=== PATIENT | male | born 1950 | race American Indian/Alaskan Native ===

== ENCOUNTER 2019-12-10 10:29 | Emergency (ER) | payer MEDICARE, OTHER ==
[2019-12-10] MEDS ORDERED: Metoprolol Tartrate 25 MG Tab PO ONE (10:31)
[2019-12-10] MEDS ORDERED: Morphine 4 MG/ML Syringe IVPUSH PRN (10:31)
[2019-12-10] MEDS ORDERED: Aspirin 81 MG Tab.EC PO ONE (10:31)
[2019-12-10] MEDS ORDERED: Nitroglycerin 0.4 MG Tab.SL SL PRN (10:31)
[2019-12-10] MEDS ORDERED: Tenecteplase 50 MG Kit ONE (10:39)
[2019-12-10] MEDS ORDERED: Aspirin 81 MG Tab.Chew ONE (10:39)
--- NOTE | 2019-12-10 10:41 | EDM.PDOC ---
ED HPI GENERAL MEDICAL PROBLEM - General Chief Complaint: Chest Pain Stated Complaint: CHEST PAIN Time Seen by Provider: 12/10/19 10:29 - History of Present Illness INITIAL COMMENTS - FREE TEXT/NARRATIVE: History of present illness: 69-year-old male presenting with left-sided chest pain that has been intermittent over the last couple hours. No radiation to the back, abdomen, neck head or jaw. Pressure-like located in the left lower chest and severe, 7- 8/10. Hypertensive on arrival here. No respiratory distress, difficulty breathing, cough, fevers, chills, nausea, vomiting, abdominal pain, or any other symptoms reported. He does report that he has had this pain sometimes in the past but has never sought medical care for it. Family members with cardiac disease. He is a smoker and does not see doctors, but reports in the past he was told he had prediabetes, and was also told that he needed to have a cardiac stent but when they told him how much it cost he did not pursue recommended treatment due to financial constraints. Review of systems: As per history of present illness and below otherwise all systems reviewed and negative. Past medical history: As per history of present illness and as reviewed below otherwise noncontributory. Borderline diabetes, coronary artery disease, stentable coronary lesion that was not stented 10 years ago. Surgical history: As per history of present illness and as reviewed below otherwise noncontributory. Social history: No reported history of drug or alcohol abuse. Rare alcohol, daily tobacco Family history: As per history of present illness and as reviewed below otherwise noncontributory. Physical exam: GEN: Appears uncomfortable, moderate distress due to pain, otherwise well appearing HEENT: Atraumatic, normocephalic, mucous membranes slightly dry, Neck: supple, nontender, trachea midline. Lungs: No respiratory distress. Heart: RRR Abdomen: Soft, nondistended, nontender. Back: nontender Extremities: Atraumatic. Neurovascularly intact. Neuro: Awake, alert, oriented. Neuro Exam nonfocal. Psych: Normal mood and affect Skin: warm, dry, slightly pale, no lesions Diagnostics: EKG, labs Therapeutics: TNKase, metoprolol, aspirin, morphine, Plavix MDM: Impression: Acute coronary syndrome Plan: Emergent air transfer to [facility] for interventional cardiology consultation and catheterization Definitive disposition and diagnosis as appropriate pending reevaluation and review of above. Left Chest Pain Score (Numeric/FACES): 7 - Related Data Allergies Allergy/AdvReac Type Severity Reaction Status Date / Time No Known Allergies Allergy Verified 12/10/19 10:34 Home Meds: Home Meds . [No Known Home Meds] 12/10/19 [History] ED ROS GENERAL - Review of Systems Review Of Systems: See Below (See HPI) ED EXAM, GENERAL - Physical Exam Exam: See Below (see HPI) EKG INTERPRETATION EKG Interpretation Comments: Initial EKG performed at 10:[address] depressions from V2 through V5, very mild ST elevations in aVR concern for posterior ST elevation VA. Repeat EKG performed at 10:40 AM sinus rhythm with similar distribution of ST depressions. Initial EKG discussed immediately with on-call thermostatic controls supervisor at [facility], Dr. Upton who recommends transfer and TNKase. EKG performed at 10:52 AM which was a posterior EKG with lateral leads changed to posterior V7 V 89. There does not appear to be any significant ST elevation over the posterior leads. Anterior ST depression seems slightly less pronounced than on initial 2 EKGs. Course - Vital Signs Text/Narrative:: Left-sided chest discomfort, multiple cardiac risk factors and minimal health care, in the past told he was prediabetic and needed stent which he could not afford to do and therefore he never had, and he is a daily smoker. Developed some left-sided intermittent chest pain. EKG appears abnormal with large ST depressions over the anterior and lateral leads. EKG was sent to the thermostatic controls supervisor, Dr. Upton at [facility], who agrees with abnormal ST segments/depressions and recommends transfer and TNKase as well as heparin, Plavix, aspirin, beta-padilla, all of the above given. Chest x-ray with no acute findings. No widening of the mediastinum. Do not suspect aortic dissection Patient presented with 7-8 out of 10 chest pain, on reassessment 0 out of 10. Flight team at the bedside ready to take the patient. Last Recorded V/S: Last Vital Signs Temp 96.9 F 12/10/19 10:37 Pulse 77 12/10/19 10:59 Resp 15 12/10/19 10:59 BP 167/94 H 12/10/19 10:59 Pulse Ox 97 12/10/19 10:59 - Orders/Labs/Meds Orders: Active Orders 24 hr Category Date Time Status Cardiac Monitoring [RC] STAT Care 12/10/19 10:31 Active EKG 12 Lead [EKG Documentation Completion] [RC] STAT Care 12/10/19 11:12 Active EKG 12 Lead [EKG Documentation Completion] [RC] STAT Care 12/10/19 11:13 Active EKG Documentation Completion [RC] STAT Care 12/10/19 10:31 Active EKG Documentation Completion [RC] STAT Care 12/10/19 10:42 Active Toscano Catheter Insertion [Insert Urinary Catheter] [OM. Care 12/10/19 11:15 Ordered PC] Q24H Oxygen Therapy, ED [RC] ASDIRECTED Care 12/10/19 10:31 Active Urinary Catheter Assessment [RC] ASDIRECTED Care 12/10/19 11:04 Active BASIC METABOLIC PANEL,BMP [CHEM] Stat Lab 12/10/19 11:05 Received INR,PT,PROTHROMBIN TIME [COAG] Stat Lab 12/10/19 11:05 Received MAGNESIUM [CHEM] Stat Lab 12/10/19 11:05 Received PTT,PARTIAL THROMBOPLSTIN TIME [COAG] Stat Lab 12/10/19 11:05 Received TROPONIN I [CHEM] Stat Lab 12/10/19 11:05 Received Morphine Med 12/10/19 10:31 Active 4 mg IVPUSH Q10M PRN Nitroglycerin [Nitrostat] Med 12/10/19 10:31 Active 0.4 mg SL Q5M PRN Medication Orders Morphine Sulfate (Morphine) 4 mg IVPUSH Q10M PRN PRN Reason: Chest Pain Stop: 12/11/19 10:32 Last Admin: 12/10/19 10:49 Dose: 4 mg Documented by: VICTORIANO Nitroglycerin (Nitrostat) 0.4 mg SL Q5M PRN PRN Reason: Chest Pain Stop: 12/11/19 10:32 Labs: Laboratory Tests 12/10/19 Range/Units 11:05 WBC 11.12 H (4.0-11.0) K/uL RBC 5.43 (4.50-5.90) M/uL Hgb 16.3 (13.0-17.0) g/dL Hct 46.9 (38.0-50.0) % MCV 86.4 (80.0-98.0) fL MCH 30.0 (27.0-32.0) pg MCHC 34.8 (31.0-37.0) g/dL RDW Std Deviation 45.4 (28.0-62.0) fl RDW Coeff of Donnie 14 (11.0-15.0) % Plt Count 285 (150-400) K/uL MPV 9.30 (7.40-12.00) fL Neut % (Auto) 53.4 (48.0-80.0) % Lymph % (Auto) 33.8 (16.0-40.0) % Blount % (Auto) 8.0 (0.0-15.0) % Eos % (Auto) 4.4 (0.0-7.0) % Baso % (Auto) 0.4 (0.0-1.5) % Neut # (Auto) 5.9 H (1.4-5.7) K/uL Lymph # (Auto) 3.8 H (0.6-2.4) K/uL Blount # (Auto) 0.9 H (0.0-0.8) K/uL Eos # (Auto) 0.5 (0.0-0.7) K/uL Baso # (Auto) 0.0 (0.0-0.1) K/uL Nucleated RBC % 0.0 /100WBC Nucleated RBCs # 0 K/uL Meds: Medications Generic Name Dose Route Start Last Admin Trade Name Freq PRN Reason Stop Dose Admin Morphine Sulfate 4 mg 12/10/19 10:31 12/10/19 10:49 Morphine IVPUSH 12/11/19 10:32 4 mg Q10M PRN Administration Chest Pain Nitroglycerin 0.4 mg 12/10/19 10:31 Nitrostat SL 12/11/19 10:32 Q5M PRN Chest Pain Discontinued Medications Generic Name Dose Route Start Last Admin Trade Name Freq PRN Reason Stop Dose Admin Aspirin 324 mg 12/10/19 10:31 12/10/19 10:46 Halfprin PO 12/10/19 10:32 324 mg ONETIME ONE Administration Aspirin Confirm 12/10/19 10:39 12/10/19 10:47 Aspirin Administered 12/10/19 10:40 Not Given Dose 324 mg .ROUTE .STK-MED ONE Clopidogrel Bisulfate 300 mg 12/10/19 10:48 12/10/19 10:59 Plavix PO 12/10/19 10:49 300 mg ONETIME ONE Administration Heparin Sodium (Porcine) 5,000 units 12/10/19 10:48 12/10/19 10:59 Heparin Sodium IVPUSH 12/10/19 10:49 5,000 units ONETIME ONE Administration Metoprolol Tartrate 25 mg 12/10/19 10:31 12/10/19 10:45 Lopressor PO 12/10/19 10:32 25 mg ONETIME ONE Administration Tenecteplase Confirm 12/10/19 10:39 12/10/19 10:47 Tnkase Administered 12/10/19 10:40 Not Given Dose 50 mg .ROUTE .STK-MED ONE Tenecteplase 50 mg 12/10/19 10:45 12/10/19 10:58 Tnkase IV 12/10/19 10:46 50 mg ONETIME ONE Administration Protocol - Re-Assessments/Exams Free Text/Narrative Re-Assessment/Exam: 12/10/19 10:[address] Upton, thermostatic controls supervisor at [facility] who request to send the EKG picture over. This was sent immediately. He will review the image and call me back. Call also placed to helicopter team who is on their way here. 12/10/19 10:45 Dr Upton recommends TNKase, weight based, heparin 5000 Unit, Plavix 300, and ASA. Send patient immediately. Flight crew 15 min out, helicopter not able to fly currently, so the patient will go fixed wing. Dr. Upton accepts the patient. Case also discussed with Dr. Solo, ER physician who accepts the transfer as well. 12/10/19 10:59 TNKase has been given. Patient does report his pain is improving. A posterior EKG was performed at 10:52 AM which does not show any significant ST elevations over the posterior leads and the anterior ST depressions appear to be somewhat improved on the repeat EKG. 12/10/19 11:05 Patient reassessed. In no acute distress. Blood pressure is improving. Patient reports his pain is now 0 out of 10. Flight team at the bedside. Ready for transfer. Repeat EKG post TNKase was performed which does show some lessening in the prominence of the ST depressions over the anterior leads. Patient stable for emergent transfer at this time. Departure - Departure Time of Disposition: 10:50 Disposition: DC/Tfer to Acute Hospital 02 Reason for Transfer *Q: Primary PCI Indicated Clinical Impression: ACS (acute coronary syndrome) Referrals: PCP,None [Primary Care Provider] - Forms: ED Department Discharge Critical Care Note - Critical Care Note Total Time (mins): 35 Comments: Acute ST changes in a patient with multiple cardiac risk factors, needing TNKase as well as emergent air transfer to interventional cardiology for cardiac cath. Sepsis Event Note (ED) - Focused Exam Vital Signs: Vital Signs Temp Pulse Pulse Resp BP BP Pulse Ox 12/10/19 10:59 77 15 167/94 H 97 12/10/19 10:48 80 15 189/110 H 99 12/10/19 10:45 86 174/93 H 12/10/19 10:37 96.9 F 82 18 198/108 H 97 12/10/19 10:33 76 15 174/93 H 98 - My Orders Last 24 Hours: My Active Orders 12/10/19 10:31 Cardiac Monitoring [RC] STAT EKG Documentation Completion [RC] STAT Oxygen Therapy, ED [RC] ASDIRECTED Morphine 4 mg IVPUSH Q10M PRN Nitroglycerin [Nitrostat] 0.4 mg SL Q5M PRN 12/10/19 10:42 EKG Documentation Completion [RC] STAT 12/10/19 11:04 Urinary Catheter Assessment [RC] ASDIRECTED 12/10/19 11:05 BASIC METABOLIC PANEL,BMP [CHEM] Stat INR,PT,PROTHROMBIN TIME [COAG] Stat MAGNESIUM [CHEM] Stat PTT,PARTIAL THROMBOPLSTIN TIME [COAG] Stat TROPONIN I [CHEM] Stat 12/10/19 11:12 EKG 12 Lead [EKG Documentation Completion] [RC] STAT 12/10/19 11:13 EKG 12 Lead [EKG Documentation Completion] [RC] STAT 12/10/19 11:15 Toscano Catheter Insertion [Insert Urinary Catheter] [OM.PC] Q24H - Assessment/Plan Last 24 Hours: My Active Orders 12/10/19 10:31 Cardiac Monitoring [RC] STAT EKG Documentation Completion [RC] STAT Oxygen Therapy, ED [RC] ASDIRECTED Morphine 4 mg IVPUSH Q10M PRN Nitroglycerin [Nitrostat] 0.4 mg SL Q5M PRN 12/10/19 10:42 EKG Documentation Completion [RC] STAT 12/10/19 11:04 Urinary Catheter Assessment [RC] ASDIRECTED 12/10/19 11:05 BASIC METABOLIC PANEL,BMP [CHEM] Stat INR,PT,PROTHROMBIN TIME [COAG] Stat MAGNESIUM [CHEM] Stat PTT,PARTIAL THROMBOPLSTIN TIME [COAG] Stat TROPONIN I [CHEM] Stat 12/10/19 11:12 EKG 12 Lead [EKG Documentation Completion] [RC] STAT 12/10/19 11:13 EKG 12 Lead [EKG Documentation Completion] [RC] STAT 12/10/19 11:15 Toscano Catheter Insertion [Insert Urinary Catheter] [OM.PC] Q24H
[2019-12-10] MEDS ORDERED: Heparin Sodium 5,000 Units/ML Vial IVPUSH ONE (10:48)
[2019-12-10] MEDS ORDERED: Clopidogrel 75 MG Tab PO ONE (10:48)
--- NOTE | 2019-12-10 10:55 | CR ---
Chest: Portable view of the chest was obtained. Comparison: No prior chest imaging. Heart size is normal. Tortuous thoracic aorta is seen. Lungs are clear with no acute parenchymal change. Bony structures are grossly intact. Impression: 1. Nothing acute is seen on portable chest x-ray. Diagnostic code #1 This report was dictated in MDT
[2019-12-10] MEDS: Tenecteplase 50 MG Kit IV ONE ×2 (10:58→11:42)
[2019-12-10 11:23] VITALS: BP 167/94; PULSE 77
[2019-12-10 11:48] LABS: BLOOD UREA NITROGEN,BUN 13 mg/dL (7.0-18.0); CARBON DIOXIDE,CO2 21.7 mmol/L (21.0-32.0); CHLORIDE,CL 101 mmol/L (98-107); GLUCOSE RANDOM 147 mg/dL (74-106); POTASSIUM,K 3.9 mmol/L (3.5-5.1); SODIUM,NA 136 mmol/L (136-148)
== END 2019-12-10 11:14 ==
LOC: MW.ED 10:29
DX: I24.9 Acute ischemic heart disease, unspecified (principal)
CPT/HCPCS: 36415; 51702; 71045; 71045-26; 80048; 83735; 84484; 85025; 85610; 85730; 93005; 96374; 96375; 99284; 99285-25; A9270-GY; J1644; J2270; J3101

== ENCOUNTER 2024-09-15 19:46 | Emergency (ER) | payer MEDICARE, OTHER ==
[2024-09-15 22:37] VITALS: BP 164/73; PULSE 65
[2024-09-16] MEDS: cefTRIAXone 1 GM in Lidocaine 1% 2.1 ML IM ONE (00:20)
== END 2024-09-16 02:51 | disposition home or self-care (01) ==
LOC: MW.ED 19:46
DX: L03.115 Cellulitis of right lower limb (principal); Z79.899 Other long term (current) drug therapy
CPT/HCPCS: 96372; 99283; J0696; J2003

== ENCOUNTER 2024-11-17 16:27 | Emergency (ER) | payer OTHER ==
[2024-11-17] MEDS ORDERED: Sodium Chloride 0.9% 20 ML SDV IV PRN (16:40)
[2024-11-17] MEDS ORDERED: Sodium Chloride 0.9% 2.5 ML Syringe FLUSH PRN (16:40)
[2024-11-17] MEDS ORDERED: Sodium Chloride 0.9% 10 ML Syringe FLUSH PRN (16:40)
[2024-11-17 17:09] LABS: BASOPHILS ABSOLUTE AUTO 0.06 K/uL (0.00-0.20); BASOPHILS PERCENT AUTO 0.7 % (0.0-1.0); EOSINOPHILS ABSOLUTE AUTO 0.22 K/uL (0.00-0.45); EOSINOPHILS PERCENT AUTO 2.4 % (0.0-6.0); HEMATOCRIT 45.9 % (42.0-52.0); IMMATURE GRAN ABSOLUTE AUTO 0.02 K/uL (0.00-0.05); IMMATURE GRAN PERCENT AUTO 0.2 % (0.0-0.4); LYMPHOCYTES ABSOLUTE AUTO 2.21 K/uL (1.00-4.80); LYMPHOCYTES PERCENT AUTO 24.3 % (24.0-44.0); MEAN CORPUSCULAR HEMOGLOBIN 29.1 pg (28.0-32.0); MEAN CORPUSCULAR HGB CONC 34.9 g/dL (32.0-36.0); MEAN CORPUSCULAR VOLUME 83.6 fL (83.0-99.0); MEAN PLATELET VOLUME 9.1 fL (9.4-12.4); MONOCYTES ABSOLUTE AUTO 0.88 K/uL (0.00-0.80); MONOCYTES PERCENT AUTO 9.7 % (0.0-8.0); NEUTROPHILS ABSOLUTE AUTO 5.72 K/uL (1.80-7.70); NEUTROPHILS PERCENT AUTO 62.7 % (41.0-71.0); PLATELET COUNT,PLT 294 K/uL (150-400); RED BLOOD CELL COUNT 5.49 M/uL (4.52-5.90); WHITE BLOOD CELL COUNT,WBC 9.11 K/uL (3.9-11.3)
[2024-11-17 17:23] LABS: INR 1.08 (0.86-1.11); PTT,PARTIAL THROMBOPLSTIN TIME 26.8 SEC (23.9-30.7)
[2024-11-17 17:38] LABS: A/G RATIO 0.9 (0.9-1.6); ALBUMIN 3.5 g/dL (3.4-5.0); BILIRUBIN TOTAL 0.9 mg/dL (0.2-1.0); CALCIUM 9.1 mg/dL (8.5-10.1); CARBON DIOXIDE,CO2 27.4 mmol/L (21.0-32.0); EST CRCL DRUG DOSING (CG) 67.98 mL/min; MAGNESIUM 1.8 mg/dL (1.8-2.4); POTASSIUM,K 3.8 mmol/L (3.5-5.1); PROTEIN TOTAL,TP 7.4 g/dL (6.4-8.2)
[2024-11-17 18:36] LABS: BILIRUBIN,URINE NEGATIVE (NEGATIVE); COLOR,URINE YELLOW; GLUCOSE,URINE 250 mg/dL (NEGATIVE); KETONES,URINE NEGATIVE (NEGATIVE); LEUKOCYTE ESTERASE,URINE NEGATIVE (NEGATIVE); NITRITE,URINE NEGATIVE (NEGATIVE); OCCULT BLOOD,URINE TRACE-LYSED (NEGATIVE); PH,URINE 5.5 (5.0-8.0); PROTEIN,URINE 100 mg/dL (NEGATIVE)
[2024-11-17] MEDS: hydrALAZINE 20 MG/ML SDV IVPUSH ONE (18:46)
[2024-11-17] MEDS: Aspirin 81 MG Tab.Chew PO ONE (18:46)
[2024-11-17 18:48] LABS: APPEARANCE,URINE HAZY
[2024-11-17 18:49] LABS: BACTERIA,URINE FEW (NEGATIVE); EPITHELIAL CELLS,URINE OCCASIONAL (NONE-FEW); RBC,URINE 0-3 (0-2/HPF); WBC,URINE 0-2 (0-5/HPF)
[2024-11-17 20:50] VITALS: BP 127/60; PULSE 73
== END 2024-11-17 20:50 | disposition home or self-care (01) ==
LOC: MW.ED 16:27
DX: R07.9 Chest pain, unspecified (principal); R79.89 Other specified abnormal findings of blood chemistry; I25.10 Atherosclerotic heart disease of native coronary artery without angina pectoris; Z95.1 Presence of aortocoronary bypass graft; Z79.82 Long term (current) use of aspirin
CPT/HCPCS: 36415; 70450; 71045; 80053; 81001; 83690; 83735; 83880; 84484; 85025; 85610; 85730; 96374; 99285; A9270; J0360; 93010; 99283